=== PATIENT | female | born 1970 | race Caucasian/White ===

== ENCOUNTER 2017-12-08 22:34 | Inpatient (IN) | payer MEDICAID, OTHER ==
[~2017-12-08] VITALS: Ht 162.6 cm; Wt 93.4 kg
[2017-12-08] MEDS ORDERED: SODIUM CHLORIDE FLUSH 10ML SYR IVF ONE (23:00)
[2017-12-08] MEDS ORDERED: METH-356 PO (23:07)
[2017-12-08] MEDS ORDERED: DICY20TA3 PO (23:07)
[2017-12-08] MEDS ORDERED: METR500T PO (23:07)
[2017-12-08] MEDS ORDERED: TRAZ50TA18 PO (23:07)
[2017-12-08] MEDS ORDERED: PRED10TA14 PO (23:07)
[2017-12-08] MEDS ORDERED: BUPR75TA6 PO (23:07)
[2017-12-08] MEDS ORDERED: GABA300C10 PO (23:07)
[2017-12-08] MEDS ORDERED: POTA20TA89 PO (23:16)
[2017-12-08] MEDS ORDERED: METO25TA35 PO (23:16)
[2017-12-08] MEDS ORDERED: ZOLP-413 PO (23:16)
[2017-12-08] MEDS ORDERED: ALPR0.254 PO (23:16)
[2017-12-08] MEDS ORDERED: CITA20TA9 PO (23:16)
[2017-12-08 23:18] LABS: BASOPHILS # (AUTO) 0.08 x10^3/uL (0-0.1); BASOPHILS % (AUTO) 1 % (0-1); EOSINOPHILS # (AUTO) 0.22 x10^3/uL (0-0.4); EOSINOPHILS % (AUTO) 2 % (1-7); HCT (SEDRATE) 33.4 % (34.6-47.8); LYMPHOCYTES # (AUTO) 3.41 x10^3/uL (1-3.4); LYMPHOCYTES % (AUTO) 28 % (22-44); MD NO; MEAN CORPUSCULAR HEMOGLOBIN 32.9 pg (27.0-34.8); MEAN CORPUSCULAR HGB CONC 33.4 g/dL (32.4-35.8); MEAN CORPUSCULAR VOLUME 98.4 fL (80-100); MEAN PLATELET VOLUME 8.8 fL (7.4-10.4); MONOCYTES # (AUTO) 0.96 x10^3/uL (0.2-0.8); MONOCYTES % (AUTO) 8 % (2-9); NEUTROPHILS # (AUTO) 7.63 x10^3/uL (1.8-6.8); NEUTROPHILS % (AUTO) 62 % (42-75); PLATELET COUNT 251 x10^3/uL (130-400); RED CELL DISTRIBUTION WIDTH 16.7 % (9.6-15.2)
[2017-12-08 23:32] LABS: ALANINE AMINOTRANSFERASE 55 U/L (12-78); ANION GAP 10 mmol/L (5-15); CALCIUM 8.6 mg/dL (8.5-10.1); CHLORIDE 111 mmol/L (98-107); CREATININE 1.37 mg/dL (0.55-1.02)
[2017-12-08 23:42] LABS: ALKALINE PHOSPHATASE 77 U/L (45-117); BILIRUBIN,TOTAL 0.5 mg/dL (0.2-1.0); CREATINE KINASE, TOTAL 47 U/L (26-192); TOTAL PROTEIN 6.2 g/dL (6.4-8.2)
[2017-12-08 23:56] LABS: SEDIMENTATION RATE 41 mm/hr (0-20)
[2017-12-09] MEDS ORDERED: ONDANSETRON 2MG/ML, 2ML IVPush ONE
[2017-12-09 00:11] LABS: T4 (THYROXINE) 12.8 mcg/dL (4.8-13.9)
[2017-12-09] MEDS ORDERED: hydrALAzine 20 MG/ML, 1ML IVPush PRN (00:30)
[2017-12-09] MEDS ORDERED: ONDANSETRON ODT 4 MG PO PRN (00:30)
[2017-12-09 00:58] VITALS: BP 150/98
[2017-12-09 02:23] VITALS: BP 145/89
[2017-12-09] MEDS: ACETAMINOPHEN 325 MG TABLET PO PRN (04:47)
[2017-12-09 04:56] LABS: MICROSCOPIC INDICATED
[2017-12-09 05:02] LABS: AMPHETAMINE SCREEN, URINE Negative (Negative); BARBITURATE SCREEN, URINE Negative (Negative); BENZODIAZEPINE SCREEN, URINE Negative (Negative); CANNABINOID SCREEN, URINE Positive (Negative); COCAINE SCREEN, URINE Negative (Negative); METHADONE SCREEN, URINE Positive (Negative); OPIATE SCREEN, URINE Positive (Negative)
[2017-12-09 05:06] LABS: CULTURE INDICATED? NO
[2017-12-09 07:33] VITALS: BP 136/93
[2017-12-09 12:17] VITALS: BP 141/90
[2017-12-09 12:18] VITALS: BP 138/79
[2017-12-09 20:24] VITALS: BP 147/91
[2017-12-10 02:30] VITALS: BP 127/82
[2017-12-10 05:44] LABS: BASOPHILS # (AUTO) 0.06 x10^3/uL (0-0.1); BASOPHILS % (AUTO) 1 % (0-1); EOSINOPHILS # (AUTO) 0.31 x10^3/uL (0-0.4); EOSINOPHILS % (AUTO) 3 % (1-7); LYMPHOCYTES # (AUTO) 2.12 x10^3/uL (1-3.4); LYMPHOCYTES % (AUTO) 18 % (22-44); MD NO; MEAN CORPUSCULAR HGB CONC 33.9 g/dL (32.4-35.8); MEAN CORPUSCULAR VOLUME 100.2 fL (80-100); MEAN PLATELET VOLUME 8.8 fL (7.4-10.4); MONOCYTES # (AUTO) 0.81 x10^3/uL (0.2-0.8); MONOCYTES % (AUTO) 7 % (2-9); NEUTROPHILS # (AUTO) 8.59 x10^3/uL (1.8-6.8); NEUTROPHILS % (AUTO) 72 % (42-75); PLATELET COUNT 232 x10^3/uL (130-400); RED BLOOD COUNT 3.22 x10^6/uL (3.82-5.3); RED CELL DISTRIBUTION WIDTH 15.9 % (9.6-15.2)
[2017-12-10 05:57] LABS: ALBUMIN 2.8 g/dL (3.4-5.0); ANION GAP 13 mmol/L (5-15); CALCIUM 8.9 mg/dL (8.5-10.1); CHLORIDE 109 mmol/L (98-107); CREATININE 1.13 mg/dL (0.55-1.02)
[2017-12-10] MEDS ORDERED: GLUCAGON 1 MG IM PRN (06:30)
[2017-12-10] MEDS ORDERED: DEXTROSE 50%, 50ML SYRINGE IVPush PRN (06:30)
[2017-12-10] MEDS ORDERED: DEXTROSE 4 GM TAB.CHEW PO PRN (06:30)
[2017-12-10 06:40] VITALS: BP 142/91
[2017-12-10] MEDS ORDERED: POLYETHYLENE GLYCOL 17 GM PACKET ONE (08:57)
[2017-12-10] MEDS: POLYETHYLENE GLYCOL 17 GM PACKET PO SCH (09:00)
[2017-12-10] MEDS ORDERED: BISACODYL 10 MG SUPP PR PRN (09:00)
[2017-12-10] MEDS: DOCUSATE 100 MG CAPSULE PO PRN (09:10)
[2017-12-10] MEDS: SODIUM CHLORIDE FLUSH 10ML SYR IVF SCH (09:12)
[2017-12-10] MEDS: DEXTROSE 10% 1,000 ML IV SCH ×2 (10:26→21:00)
[2017-12-10] MEDS ORDERED: DIAZEPAM 5 MG TABLET PO ONE (10:30)
[2017-12-10] MEDS ORDERED: LORazepam 2 MG/ML, 1ML IVPush ONE (13:30)
[2017-12-10] MEDS ORDERED: LORazepam 2 MG/ML, 1ML ONE (13:31)
[2017-12-10] MEDS: ACETAMINOPHEN 325 MG TABLET PO PRN (16:27)
[2017-12-10 20:14] VITALS: BP 138/88
[2017-12-11] MEDS: SODIUM CHLORIDE FLUSH 10ML SYR IVF SCH ×2 (00:23→10:47)
[2017-12-11 02:27] VITALS: BP 138/83
[2017-12-11 08:00] VITALS: BP 124/82
[2017-12-11] MEDS: POLYETHYLENE GLYCOL 17 GM PACKET PO SCH (09:49)
[2017-12-11] MEDS ORDERED: LIDOCAINE 1%, 20ML ONE (10:44)
[2017-12-11] MEDS: DEXTROSE 10% 1,000 ML IV SCH (10:47)
[2017-12-11 11:55] VITALS: BP 134/88
[2017-12-11 12:41] LABS: GLUCOSE, CSF 50 mg/dL (40-80); TOTAL PROTEIN,CSF 42 mg/dL (15-45)
[2017-12-11 19:49] VITALS: BP 133/86
[2017-12-12 00:54] VITALS: BP 137/84
[2017-12-12] MEDS: SODIUM CHLORIDE FLUSH 10ML SYR IVF SCH ×3 (01:29→23:23)
[2017-12-12] MEDS: DEXTROSE 10% 1,000 ML IV SCH ×3 (01:29→23:24)
[2017-12-12] MEDS: ZOLPIDEM 5MG TABLET PO PRN ×2 (01:59→23:24)
[2017-12-12 06:45] VITALS: BP 125/81
[2017-12-12] MEDS: POLYETHYLENE GLYCOL 17 GM PACKET PO SCH (07:59)
[2017-12-12] MEDS: DOCUSATE 100 MG CAPSULE PO PRN (08:15)
[2017-12-12] MEDS: ACETAMINOPHEN 325 MG TABLET PO PRN (08:15)
[2017-12-12 12:16] VITALS: BP 132/83
[2017-12-12] MEDS: BUPROPION 75 MG TABLET PO SCH ×2 (12:24→21:00)
[2017-12-12] MEDS: GABAPENTIN 300 MG CAPSULE PO SCH ×2 (12:24→23:24)
[2017-12-12] MEDS: DRONABINOL 2.5 MG CAPSULE PO SCH ×2 (13:03→23:24)
[2017-12-12 13:26] LABS: ACETONE, SERUM Trace (10mg/dL) mg/dL (Negative)
[2017-12-12 19:45] VITALS: BP 124/84
[2017-12-12 22:36] LABS: HEMOGLOBIN A1C 4.9 % (4.2-6.3)
[2017-12-13 00:41] VITALS: BP 115/80
[2017-12-13 07:26] VITALS: BP 138/78
[2017-12-13] MEDS: POLYETHYLENE GLYCOL 17 GM PACKET PO SCH ×2 (09:00→10:22)
[2017-12-13] MEDS: BUPROPION 75 MG TABLET PO SCH ×2 (10:21→20:35)
[2017-12-13] MEDS: DRONABINOL 2.5 MG CAPSULE PO SCH ×2 (10:22→20:34)
[2017-12-13] MEDS: SODIUM CHLORIDE FLUSH 10ML SYR IVF SCH ×2 (10:22→20:35)
[2017-12-13] MEDS: GABAPENTIN 300 MG CAPSULE PO SCH ×2 (10:22→20:34)
[2017-12-13 12:54] VITALS: BP 134/87
[2017-12-13 18:33] VITALS: BP 138/92
[2017-12-13] MEDS: ZOLPIDEM 5MG TABLET PO PRN (20:34)
[2017-12-14 03:03] VITALS: BP 114/79
[2017-12-14 05:14] LABS: BASOPHILS # (AUTO) 0.04 x10^3/uL (0-0.1); BASOPHILS % (AUTO) 0 % (0-1); EOSINOPHILS # (AUTO) 0.25 x10^3/uL (0-0.4); EOSINOPHILS % (AUTO) 2 % (1-7); LYMPHOCYTES # (AUTO) 2.68 x10^3/uL (1-3.4); LYMPHOCYTES % (AUTO) 26 % (22-44); MD NO; MEAN CORPUSCULAR HEMOGLOBIN 33.5 pg (27.0-34.8); MEAN CORPUSCULAR HGB CONC 33.5 g/dL (32.4-35.8); MEAN CORPUSCULAR VOLUME 99.9 fL (80-100); MEAN PLATELET VOLUME 9.2 fL (7.4-10.4); MONOCYTES # (AUTO) 0.94 x10^3/uL (0.2-0.8); MONOCYTES % (AUTO) 9 % (2-9); NEUTROPHILS # (AUTO) 6.41 x10^3/uL (1.8-6.8); NEUTROPHILS % (AUTO) 62 % (42-75); PLATELET COUNT 254 x10^3/uL (130-400); RED BLOOD COUNT 3.35 x10^6/uL (3.82-5.3); RED CELL DISTRIBUTION WIDTH 15.9 % (9.6-15.2)
[2017-12-14 05:26] LABS: ALBUMIN 2.6 g/dL (3.4-5.0); ANION GAP 8 mmol/L (5-15); CALCIUM 8.5 mg/dL (8.5-10.1); CHLORIDE 106 mmol/L (98-107)
[2017-12-14 05:32] LABS: ALANINE AMINOTRANSFERASE 23 U/L (12-78); ALKALINE PHOSPHATASE 86 U/L (45-117); BILIRUBIN,TOTAL 0.4 mg/dL (0.2-1.0); CREATININE 1.28 mg/dL (0.55-1.02); TOTAL PROTEIN 5.9 g/dL (6.4-8.2)
[2017-12-14 07:36] VITALS: BP 140/83
[2017-12-14] MEDS: POTASSIUM CHLORIDE 20 MEQ TAB.ER.PRT PO SCH ×2 (09:06→16:24)
[2017-12-14] MEDS: DRONABINOL 2.5 MG CAPSULE PO SCH ×2 (09:06→21:58)
[2017-12-14] MEDS: BUPROPION 75 MG TABLET PO SCH ×2 (09:06→21:58)
[2017-12-14] MEDS: POLYETHYLENE GLYCOL 17 GM PACKET PO SCH (09:07)
[2017-12-14] MEDS: GABAPENTIN 300 MG CAPSULE PO SCH ×3 (09:07→21:58)
[2017-12-14] MEDS: SODIUM CHLORIDE FLUSH 10ML SYR IVF SCH ×2 (09:08→21:00)
[2017-12-14 14:25] VITALS: BP 126/82
[2017-12-14 20:13] VITALS: BP 127/87
[2017-12-14] MEDS: ZOLPIDEM 5MG TABLET PO PRN (21:58)
[2017-12-15 01:19] VITALS: BP 108/76
[2017-12-15 07:08] VITALS: BP 154/101
[2017-12-15] MEDS: DRONABINOL 2.5 MG CAPSULE PO SCH ×2 (10:01→21:24)
[2017-12-15] MEDS: GABAPENTIN 300 MG CAPSULE PO SCH ×3 (10:01→21:24)
[2017-12-15] MEDS: SODIUM CHLORIDE FLUSH 10ML SYR IVF SCH ×2 (10:01→21:24)
[2017-12-15] MEDS: BUPROPION 75 MG TABLET PO SCH ×2 (10:01→21:24)
[2017-12-15] MEDS: POLYETHYLENE GLYCOL 17 GM PACKET PO SCH (10:01)
[2017-12-15 10:06] VITALS: BP 138/99
[2017-12-15 13:32] VITALS: BP 124/88
[2017-12-15] MEDS: ENOXAPARIN 40 MG/0.4 ML SQ SCH ×2 (17:36→17:39)
[2017-12-15] MEDS: ACETAMINOPHEN 325 MG TABLET PO PRN (17:36)
[2017-12-15 19:38] VITALS: BP 142/89
[2017-12-15] MEDS: ZOLPIDEM 5MG TABLET PO PRN (21:24)
[2017-12-16 01:45] VITALS: BP 125/85
[2017-12-16 05:52] LABS: BASOPHILS # (AUTO) 0.04 x10^3/uL (0-0.1); BASOPHILS % (AUTO) 1 % (0-1); EOSINOPHILS # (AUTO) 0.23 x10^3/uL (0-0.4); EOSINOPHILS % (AUTO) 3 % (1-7); LYMPHOCYTES # (AUTO) 2.02 x10^3/uL (1-3.4); LYMPHOCYTES % (AUTO) 26 % (22-44); MD NO; MEAN CORPUSCULAR HGB CONC 33.5 g/dL (32.4-35.8); MEAN CORPUSCULAR VOLUME 98.6 fL (80-100); MONOCYTES # (AUTO) 0.55 x10^3/uL (0.2-0.8); MONOCYTES % (AUTO) 7 % (2-9); NEUTROPHILS # (AUTO) 4.82 x10^3/uL (1.8-6.8); NEUTROPHILS % (AUTO) 63 % (42-75); PLATELET COUNT 263 x10^3/uL (130-400); RED BLOOD COUNT 3.38 x10^6/uL (3.82-5.3); RED CELL DISTRIBUTION WIDTH 15.4 % (9.6-15.2)
[2017-12-16 06:01] LABS: CHLORIDE 108 mmol/L (98-107)
[2017-12-16 06:05] LABS: ANION GAP 9 mmol/L (5-15); CALCIUM 8.8 mg/dL (8.5-10.1); CREATININE 1.26 mg/dL (0.55-1.02)
[2017-12-16 07:00] VITALS: BP 121/82
[2017-12-16] MEDS: GABAPENTIN 300 MG CAPSULE PO SCH (08:49)
[2017-12-16] MEDS: BUPROPION 75 MG TABLET PO SCH ×2 (08:50→19:50)
[2017-12-16] MEDS: DRONABINOL 2.5 MG CAPSULE PO SCH ×2 (08:51→19:50)
[2017-12-16] MEDS: SODIUM CHLORIDE FLUSH 10ML SYR IVF SCH ×2 (08:52→19:52)
[2017-12-16] MEDS: POLYETHYLENE GLYCOL 17 GM PACKET PO SCH (08:52)
[2017-12-16 12:50] VITALS: BP 137/82
[2017-12-16] MEDS: ACETAMINOPHEN 325 MG TABLET PO PRN (14:23)
[2017-12-16] MEDS: GABAPENTIN 400 MG CAPSULE PO SCH ×2 (15:40→19:51)
[2017-12-16] MEDS: ENOXAPARIN 40 MG/0.4 ML SQ SCH (15:40)
[2017-12-16] MEDS: ZOLPIDEM 5MG TABLET PO PRN (19:50)
[2017-12-16 19:55] VITALS: BP 143/84
[2017-12-17 02:04] VITALS: BP 130/82
[2017-12-17 06:40] VITALS: BP 118/82
[2017-12-17] MEDS: DRONABINOL 2.5 MG CAPSULE PO SCH ×2 (07:36→23:24)
[2017-12-17] MEDS: POLYETHYLENE GLYCOL 17 GM PACKET PO SCH (07:36)
[2017-12-17] MEDS: SODIUM CHLORIDE FLUSH 10ML SYR IVF SCH ×2 (07:36→23:23)
[2017-12-17] MEDS: GABAPENTIN 400 MG CAPSULE PO SCH ×3 (07:36→23:24)
[2017-12-17] MEDS: BUPROPION 75 MG TABLET PO SCH ×2 (07:36→23:25)
[2017-12-17 12:40] VITALS: BP 136/92
[2017-12-17] MEDS: ENOXAPARIN 40 MG/0.4 ML SQ SCH (15:54)
[2017-12-17 19:45] VITALS: BP 127/88
[2017-12-17] MEDS: ZOLPIDEM 5MG TABLET PO PRN (23:24)
[2017-12-18 00:55] VITALS: BP 120/84
[2017-12-18] MEDS: SODIUM CHLORIDE FLUSH 10ML SYR IVF SCH ×2 (07:22→23:28)
[2017-12-18 07:29] VITALS: BP 106/72
[2017-12-18] MEDS: BUPROPION 75 MG TABLET PO SCH ×2 (08:08→23:28)
[2017-12-18] MEDS: DRONABINOL 2.5 MG CAPSULE PO SCH ×2 (08:08→23:28)
[2017-12-18] MEDS: POLYETHYLENE GLYCOL 17 GM PACKET PO SCH (08:09)
[2017-12-18] MEDS: GABAPENTIN 400 MG CAPSULE PO SCH ×3 (08:09→23:27)
[2017-12-18 12:19] VITALS: BP 134/84
[2017-12-18] MEDS: ENOXAPARIN 40 MG/0.4 ML SQ SCH (16:00)
[2017-12-18 19:32] VITALS: BP 133/83
[2017-12-18] MEDS: ZOLPIDEM 5MG TABLET PO PRN (23:27)
[2017-12-19 01:12] VITALS: BP 110/74
[2017-12-19 08:30] VITALS: BP 128/83
[2017-12-19] MEDS: SODIUM CHLORIDE FLUSH 10ML SYR IVF SCH ×2 (09:30→21:00)
[2017-12-19] MEDS: BUPROPION 75 MG TABLET PO SCH ×2 (09:30→21:03)
[2017-12-19] MEDS: GABAPENTIN 400 MG CAPSULE PO SCH ×3 (09:30→21:04)
[2017-12-19] MEDS: POLYETHYLENE GLYCOL 17 GM PACKET PO SCH (09:30)
[2017-12-19] MEDS: DRONABINOL 2.5 MG CAPSULE PO SCH ×2 (09:30→21:03)
[2017-12-19 12:20] VITALS: BP 111/83
[2017-12-19] MEDS: ENOXAPARIN 40 MG/0.4 ML SQ SCH (15:47)
[2017-12-19 18:33] VITALS: BP 166/88
[2017-12-19] MEDS: ZOLPIDEM 5MG TABLET PO PRN (21:04)
[2017-12-20 00:21] VITALS: BP 123/76
[2017-12-20 06:51] VITALS: BP 120/83
[2017-12-20] MEDS: POLYETHYLENE GLYCOL 17 GM PACKET PO SCH (09:00)
[2017-12-20] MEDS: SODIUM CHLORIDE FLUSH 10ML SYR IVF SCH ×2 (09:00→19:57)
[2017-12-20] MEDS: BUPROPION 75 MG TABLET PO SCH ×2 (09:10→19:57)
[2017-12-20] MEDS: DRONABINOL 2.5 MG CAPSULE PO SCH ×2 (09:10→19:56)
[2017-12-20] MEDS: GABAPENTIN 400 MG CAPSULE PO SCH ×3 (09:10→19:57)
[2017-12-20 12:06] LABS: CLOSTRIDIUM DIFFICILE ANTIGEN NEGATIVE; CLOSTRIDIUM DIFFICILE TOXIN NEGATIVE (Negative)
[2017-12-20 12:19] VITALS: BP 118/82
[2017-12-20] MEDS: ENOXAPARIN 40 MG/0.4 ML SQ SCH (16:00)
[2017-12-20 18:52] VITALS: BP 137/86
[2017-12-20] MEDS: ZOLPIDEM 5MG TABLET PO PRN (19:59)
[2017-12-21 02:46] VITALS: BP 126/84
[2017-12-21 07:05] VITALS: BP 108/76
[2017-12-21] MEDS: BUPROPION 75 MG TABLET PO SCH ×2 (07:58→19:46)
[2017-12-21] MEDS: GABAPENTIN 400 MG CAPSULE PO SCH ×3 (07:58→19:46)
[2017-12-21] MEDS: DRONABINOL 2.5 MG CAPSULE PO SCH ×2 (07:58→19:46)
[2017-12-21] MEDS: SODIUM CHLORIDE FLUSH 10ML SYR IVF SCH ×2 (09:00→19:47)
[2017-12-21] MEDS: POLYETHYLENE GLYCOL 17 GM PACKET PO SCH (09:00)
[2017-12-21 10:38] LABS: BASOPHILS # (AUTO) 0.05 x10^3/uL (0-0.1); BASOPHILS % (AUTO) 1 % (0-1); EOSINOPHILS # (AUTO) 0.08 x10^3/uL (0-0.4); EOSINOPHILS % (AUTO) 1 % (1-7); LYMPHOCYTES # (AUTO) 1.86 x10^3/uL (1-3.4); LYMPHOCYTES % (AUTO) 22 % (22-44); MD NO; MEAN CORPUSCULAR HEMOGLOBIN 32.7 pg (27.0-34.8); MEAN PLATELET VOLUME 8.7 fL (7.4-10.4); MONOCYTES # (AUTO) 0.76 x10^3/uL (0.2-0.8); MONOCYTES % (AUTO) 9 % (2-9); NEUTROPHILS # (AUTO) 5.56 x10^3/uL (1.8-6.8); NEUTROPHILS % (AUTO) 67 % (42-75); PLATELET COUNT 391 x10^3/uL (130-400); RED BLOOD COUNT 3.65 x10^6/uL (3.82-5.3); RED CELL DISTRIBUTION WIDTH 14.9 % (9.6-15.2)
[2017-12-21 13:13] VITALS: BP 128/86
[2017-12-21] MEDS: ENOXAPARIN 40 MG/0.4 ML SQ SCH (16:00)
[2017-12-21 17:06] LABS: MICROSCOPIC INDICATED
[2017-12-21 18:41] VITALS: BP 138/89
[2017-12-21] MEDS: ZOLPIDEM 5MG TABLET PO PRN (19:46)
[2017-12-22 03:55] VITALS: BP 130/99
[2017-12-22] MEDS: GABAPENTIN 400 MG CAPSULE PO SCH ×2 (07:34→16:00)
[2017-12-22] MEDS: DRONABINOL 2.5 MG CAPSULE PO SCH (07:34)
[2017-12-22] MEDS: BUPROPION 75 MG TABLET PO SCH (07:34)
[2017-12-22] MEDS: SODIUM CHLORIDE FLUSH 10ML SYR IVF SCH (07:52)
[2017-12-22 07:55] VITALS: BP 140/80
[2017-12-22] MEDS: POLYETHYLENE GLYCOL 17 GM PACKET PO SCH (09:00)
[2017-12-22] MEDS ORDERED: GABA-827 PO (09:43)
[2017-12-22] MEDS: METOPROLOL TARTRATE 25 MG TABLET PO SCH ×2 (09:58→17:36)
[2017-12-22 13:49] VITALS: BP 118/81
[2017-12-22] MEDS: ENOXAPARIN 40 MG/0.4 ML SQ SCH (16:00)
== END 2017-12-22 17:30 | disposition home or self-care (01) | DRG 73 ==
LOC: ED 23:59 → EDIP 12-09 00:09 → 4NOR 12-09 00:55
PROVIDERS: ADMIT Hospitalist; ATTEND Hospitalist
PROC: 009U3ZX Drainage of Spinal Canal, Percutaneous Approach, Diagnostic (ICD-10-PCS; principal; 2017-12-11)
PROC: B01B1ZZ Fluoroscopy of Spinal Cord using Low Osmolar Contrast (ICD-10-PCS; 2017-12-11)
DX: G62.9 Polyneuropathy, unspecified (principal); R53.2 Functional quadriplegia; I11.9 Hypertensive heart disease without heart failure; F33.9 Major depressive disorder, recurrent, unspecified; R53.1 Weakness; D64.9 Anemia, unspecified; D72.829 Elevated white blood cell count, unspecified; E16.2 Hypoglycemia, unspecified; E87.6 Hypokalemia; F43.10 Post-traumatic stress disorder, unspecified; G47.33 Obstructive sleep apnea (adult) (pediatric); R62.7 Adult failure to thrive; T38.0X5A Adverse effect of glucocorticoids and synthetic analogues, initial encounter; Z90.49 Acquired absence of other specified parts of digestive tract
CPT/HCPCS: 36415; 62270; 70551; 71045; 72141; 72146; 72148; 80048; 80053; 80307; 80377; 81001; 82010; 82040; 82042; 82533; 82550; 82784; 82945; 82962; 83036; 83525; 83735; 83873; 84100; 84157; 84206; 84436; 84443; 84481; 84681; 85025; 85651; 86038; 86140; 86645; 86695; 86696; 86762; 86777; 86778; 87070; 87205; 87324; 89051; 99285; J1650; J3490; Q0162; Q0167; G0481; J2060